=== PATIENT | male | born 1980 | race Two or more races ===

== ENCOUNTER 2019-06-02 06:15 | Emergency (ER) | payer OTHER ==
[~2019-06-02] VITALS: Ht 175.3 cm; Wt 70.5 kg
[2019-06-02 06:16] VITALS: BP 174/99
[2019-06-02] MEDS ORDERED: AUGM500T34 PO (06:30)
[2019-06-02] MEDS ORDERED: AUGMENTIN 875 MG TAB PO ONE (06:30)
== END 2019-06-02 07:00 | disposition home or self-care (01) ==
LOC: M ED 06:15
DX: S61.451A Open bite of right hand, initial encounter (principal); S61.452A Open bite of left hand, initial encounter; W55.01XA Bitten by cat, initial encounter; Y92.9 Unspecified place or not applicable; Y93.9 Activity, unspecified; Y99.9 Unspecified external cause status